=== PATIENT | male | born 1935 | race Caucasian/White ===

== ENCOUNTER 2019-08-28 19:42 | Emergency (ER) | payer OTHER ==
[~2019-08-28] VITALS: Ht 177.8 cm; Wt 77.1 kg
[2019-08-28] MEDS ORDERED: LASIX 40 MG TAB40 MG PO (20:04)
[2019-08-28] MEDS ORDERED: SUPER THERAVIT1 EACH PO (20:04)
[2019-08-28] MEDS ORDERED: LISINOPRIL-HCT1 EACH PO (20:04)
[2019-08-28] MEDS ORDERED: KLOR-CON M2020 MEQ PO (20:04)
[2019-08-28] MEDS ORDERED: COUMADIN7.5 MG PO (20:04)
[2019-08-28 20:21] LABS: ABSOLUTE LYMPHOCYTES 0.8 thou/uL (0.8-5.3); ABSOLUTE MONOCYTES 0.9 thou/uL (0.0-1.2); ABSOLUTE NEUTROPHILS 7.3 thou/uL (1.6-8.1); BASOPHILS 0.4 %; HEMATOCRIT 42.5 % (42.0-52.0); HEMOGLOBIN 14.4 gm/dL (14.0-18.0); LYMPHOCYTES 8.8 %; MCH 32.1 pg (26.0-34.0); MCHC 33.9 g/dL (28.0-37.0); MCV 94.8 fL (80.0-100.0); MONOCYTES 9.5 %; MPV 9.4 fl. (7.2-11.1); NUCLEATED RBCS 0 /100WBC; PLATELET COUNT* 122 thou/uL (150-400); POLYS 81.3 %; RBC 4.48 mil/uL (4.50-6.00); RDW-CV 15.1 % (10.5-14.5)
[2019-08-28 20:31] LABS: CALCIUM 9.4 mg/dL (8.5-10.1); CREATININE 1.3 mg/dL (0.6-1.3); POTASSIUM 4.7 mmol/L (3.5-5.1)
[2019-08-28 20:38] VITALS: BP 142/65
[2019-08-28 20:39] LABS: INR 3.1; PROTIME 30.8 Seconds (9.20-11.50)
[2019-08-28 20:40] LABS: ALBUMIN 3.5 g/dL (3.4-5.0); MAGNESIUM 2.4 mg/dL (1.8-2.4); TOTAL BILIRUBIN 1.2 mg/dL (<0.1-1.0); TOTAL PROTEIN 7.7 g/dL (6.4-8.2)
--- NOTE | 2019-08-30 08:42 | EKG ---
[place] [address] ELECTROCARDIOGRAM REPORT Name: INDRA AGUDELO Room: [facility]#: [id number] Admission: 08/28/19 Attend Phys: Discharge: 08/28/19 Date of : 37 Date of Service: 08/28/192001 Report #: [id number] THIS REPORT FOR: //name// [facility] ED Test Date: 2019-08-28 Test Time: 20:02:00 Pat Name: INDRA AGUDELO Department: Room: Gender: Health Workers: [place] : 1935 Requested By: Kathi Lei Order Number: [id number] MD: Anthony Ocampo Measurements Intervals [place] Rate: 56 P: NM: QRS: 65 QRSD: 109 T: -31 QT: 472 QTc: 456 Interpretive Statements Atrial fibrillation Ventricular premature complex Abnormal R-wave progression, early transition Borderline ST depression, diffuse leads Abnormal T, consider ischemia, inferior leads Baseline wander in lead(s) V1 No previous ECG available for comparison Electronically Signed On 08-30-2019 8:41:34 CDT by Anthony Ocampo [email or web address] <ELECTRONICALLY SIGNED> By: Anthony Ocampo MD, FACC 08/30/19 0841 01 01 Anthony Ocampo MD, FAC /EPI
== END 2019-08-28 20:53 | disposition short-term general hospital (02) ==
LOC: M.ERS 19:42
PROVIDERS: Emergency Medicine
DX: S06.5X0A Traumatic subdural hemorrhage without loss of consciousness, initial encounter (principal); S20.211A Contusion of right front wall of thorax, initial encounter; S40.211A Abrasion of right shoulder, initial encounter; S50.811A Abrasion of right forearm, initial encounter; Z79.01 Long term (current) use of anticoagulants; Z79.899 Other long term (current) drug therapy; W18.30XA Fall on same level, unspecified, initial encounter; Y93.89 Activity, other specified; Y92.89 Other specified places as the place of occurrence of the external cause; Y99.9 Unspecified external cause status